=== PATIENT | male | born 1980 | race Two or more races ===

== ENCOUNTER 2018-08-05 12:38 | Emergency (ER) | payer OTHER ==
[2018-08-05 12:59] VITALS: TEMP 98.4; BMI 29.9
--- NOTE | 2018-08-05 12:59 | PDOC ---
History of Present Illness - General Chief Complaint: Cold Symptoms Stated Complaint: COUGH Time Seen by Provider: 08/05/18 12:47 - History of Present Illness Initial Comments: 08/05/18 13:30 Chief complaint: Cough History of present illness: Nonproductive cough for about 1 week. Also nasal congestion. Review of systems: No fever/chills, chest pain, shortness of breath, abdominal pain, nausea, vomiting, diarrhea, visual or focal neurologic symptoms, unsteadiness of gait. Past medical history: Hypertension, [id number] diabetes. Denies asthma or other lung disease. Social/family history reviewed and noncontributory Physical exam: Alert and oriented well-developed well-nourished no acute distress cheerful and cooperative Afebrile, vital signs normal except for mildly elevated blood pressure. Respiratory rate and oxygen saturation are normal HEENT: Mild nasal congestion, watery discharge Neck supple without bruit mass or nodes Chest clear to P&A but mildly decreased breath sounds throughout CV S1 and S2 normal without murmur rub or gallop pulses full and symmetric no JVD or edema no bruits 100 and regular Abdomen soft nontender without mass or organomegaly Extremities no CCE Skin clear, no rash, adequate turgor and wet mucous membranes Neurological intact Impression: Acute bronchitis, probably viral, possibly community-acquired pneumonia Plan: Antibiotics, antitussives, rest and close follow-up. Past History - Past Medical History Allergies/Adverse Reactions: Allergies Allergy/AdvReac Type Severity Reaction Status Date / Time No Known Allergies Allergy Verified 08/05/18 12:39 Home Medications: Ambulatory Orders Lisinopril [Zestril] 30 mg PO DAILY 01/06/16 Metformin HCl [Metformin HCl ER] 500 mg PO DAILY 01/06/16 Azithromycin [Zithromax 250mg Tablets -] 250 mg PO UTDICT #6 tab 08/05/18 Guaifenesin AC [Robitussin-AC] 1 - 2 tsp PO Q4HWA PRN #90 ml MDD 8 08/05/18 COPD: No Diabetes: Yes HTN: Yes - Immunization History Immunization Up to Date: Yes - Suicide/Smoking/Psychosocial Hx Smoking History: Never smoked Have you smoked in the past 12 months: No Information on smoking cessation initiated: No Hx Alcohol Use: No Drug/Substance Use Hx: No Substance Use Type: None *Physical Exam - Vital Signs Last Vital Signs Temp Pulse Resp BP Pulse Ox 98.4 F 106 H 20 148/101 H 99 08/05/18 12:38 08/05/18 12:38 08/05/18 12:38 08/05/18 12:38 08/05/18 12:38 Medical Decision Making - Medical Decision Making 08/05/18 14:12 Blood pressure and pulse normalized. Respiratory status is unchanged. No tachypnea, dyspnea, respiratory rate 12 and unlabored, and oxygen saturation 99% . Fully ambulatory and in no distress respiratory or otherwise at discharge to follow-up as directed. *DC/Admit/Observation/Transfer Diagnosis at time of Disposition: Acute bronchitis Qualifiers: Bronchitis organism: unspecified organism Qualified Code(s): J20.9 - Acute bronchitis, unspecified - Discharge Dispostion Disposition: HOME Condition at time of disposition: Stable Decision to Admit order: No - Prescriptions Prescriptions: Azithromycin [Zithromax 250mg Tablets -] 250 mg PO UTDICT #6 tab Guaifenesin AC [Robitussin-AC] 1 - 2 tsp PO Q4HWA PRN #90 ml MDD 8 PRN Reason: Cough - Referrals Referrals: Efra Serrano MD [Staff Physician] - 08/09/18 - Patient Instructions Printed Discharge Instructions: DI for Acute Bronchitis - Post Discharge Activity Forms/Work/School Notes: Back to Work
[2018-08-05 14:07] VITALS: BP 134/94; PULSE 81
== END 2018-08-05 14:29 | disposition home or self-care (01) ==
LOC: FER 12:38
DX: J20.9 Acute bronchitis, unspecified (principal); I10 Essential (primary) hypertension; E11.9 Type 2 diabetes mellitus without complications
CPT/HCPCS: 99282-25

== ENCOUNTER 2023-01-16 04:17 | Day surgery (SDC) | payer OTHER ==
[2023-01-15 13:02] VITALS: BMI 29.0
[2023-01-16 10:12] VITALS: TEMP 98
[2023-01-16 10:34] VITALS: PULSE 68
[2023-01-16 10:46] VITALS: BP 120/76; RESP 20
== END 2023-01-16 11:35 | disposition home or self-care (01) ==
LOC: JASU-ENDO 04:17
PROVIDERS: ATTEND Internal Medicine Gastroenterology
PROC: 0DJD8ZZ Inspection of Lower Intestinal Tract, Via Natural or Artificial Opening Endoscopic (ICD-10-PCS; principal; 2023-01-16 10:00)
DX: Z12.11 Encounter for screening for malignant neoplasm of colon (principal); K64.8 Other hemorrhoids

== ENCOUNTER 2023-10-26 19:34 | Emergency (ER) | payer OTHER ==
[2023-10-26 19:41] VITALS: RESP 18; BMI 29.2
[2023-10-26] MEDS ORDERED: ONDANSETRON 4 MG/2 ML VIAL ONE (21:24)
[2023-10-26] MEDS ORDERED: ACETAMINOPHEN INJECTION 100 ML IVPB ONE (21:24)
[2023-10-26] MEDS ORDERED: FAMOTIDINE 10 MG/ML VIAL IVPB ONE (21:25)
[2023-10-26] MEDS ORDERED: FAMOTIDINE 20 MG/50 ML IVPB 20 MG/50 ML MG IVPB ONE (21:26)
[2023-10-26 21:34] LABS: BASO % 0.6 % (0-2.0); EOS % 0.9 % (0-4.5); HEMATOCRIT 41.8 % (35.4-49); HEMOGLOBIN 14.3 GM/dL (11.7-16.9); LYMPH % 25.9 % (8-40); MCH 29.9 pg (25.7-33.7); MCHC 34.2 g/dl (32.0-35.9); MEAN CELL VOLUME 87.4 fl (80-96); MEAN PLT VOLUME 7.4 fl (7.5-11.1); MONO % 9.1 % (3.8-10.2); NEUT % 63.5 % (42.8-82.8); PLATELET COUNT 312 10^3/uL (134-434); RBC 4.78 M/mm3 (4.00-5.60); RDW 13.2 % (11.9-15.9); WHITE BLOOD COUNT 10.1 K/mm3 (4.0-10.0)
[2023-10-26] MEDS: SODIUM CHLORIDE 0.9% 500 ML INFUS.BAG IV ONE (21:44)
[2023-10-26] MEDS: ACETAMINOPHEN 1000 MG/100 ML BAG IVPB ONE (21:45)
[2023-10-26] MEDS: FAMOTIDINE 20 MG/50 ML IVPB 20 MG/50 ML MG IVPB ONE (21:45)
[2023-10-26] MEDS: ONDANSETRON 4 MG/2 ML VIAL IVPUSH ONE (21:46)
[2023-10-26 22:35] LABS: POTASSIUM 4.1 mmol/L (3.5-5.1)
[2023-10-26 22:37] LABS: CALCIUM 9.4 mg/dL (8.5-10.1)
[2023-10-26 22:38] LABS: ALBUMIN 4.7 g/dl (3.4-5.0); BLOOD UREA NITROGEN 7.8 mg/dL (7-18); MAGNESIUM 1.8 mg/dL (1.8-2.4)
[2023-10-26 22:41] LABS: CREATININE 0.9 mg/dL (0.55-1.3)
[2023-10-26 22:42] LABS: TOT PROT 8.3 g/dl (6.4-8.2)
[2023-10-26 22:43] LABS: BILIRUBIN,TOTAL 0.5 mg/dL (0.2-1)
[2023-10-27 01:45] VITALS: BP 124/87; PULSE 77; TEMP 97.7
== END 2023-10-27 01:47 | disposition home or self-care (01) ==
LOC: JER 19:34
PROC: 3E033GC Introduction of Other Therapeutic Substance into Peripheral Vein, Percutaneous Approach (ICD-10-PCS; principal; 2023-10-26)
PROC: 3E033GC Introduction of Other Therapeutic Substance into Peripheral Vein, Percutaneous Approach (ICD-10-PCS; 2023-10-26)
PROC: 3E033GC Introduction of Other Therapeutic Substance into Peripheral Vein, Percutaneous Approach (ICD-10-PCS; 2023-10-26)
DX: R10.13 Epigastric pain (principal); R11.2 Nausea with vomiting, unspecified; K80.20 Calculus of gallbladder without cholecystitis without obstruction
CPT/HCPCS: 36415; 76705-TC; 80053; 83690; 83735; 84484; 85025; 93005; 93010; 99285-25; J0131

== ENCOUNTER 2023-11-13 04:24 | Day surgery (SDC) | payer OTHER ==
[2023-11-06 17:32] VITALS: BMI 29.2
[2023-11-13] MEDS ORDERED: MIDAZOLAM HCL 2 MG/2 ML SINGLE DOSE VIAL ONE (11:53)
[2023-11-13] MEDS ORDERED: BUPIVACAINE HCL/PF 0.25% (2.5MG/ML) 10 ML VIAL ONE (11:55)
[2023-11-13] MEDS ORDERED: INDOCYANINE GREEN 25 MG/10 ML VIAL IVPUSH ONE (12:20)
[2023-11-13] MEDS ORDERED: LACTATED RINGERS SOLUTION 1,000 ML IV SCH ×2 (12:30→15:45)
[2023-11-13] MEDS ORDERED: cefOXitin SODIUM 2 GM VIAL (RESTRICTED TO ID) IVPB ONE (13:02)
[2023-11-13] MEDS: cefOXitin SODIUM 2 GM VIAL (RESTRICTED TO ID) IVPB ONE (13:06)
[2023-11-13] MEDS ORDERED: ROCURONIUM BROMIDE 50 MG/5 ML SYRINGE ONE (13:13)
[2023-11-13] MEDS: LIDOCAINE HCL 1%, 10 MG/ML (20ML VIAL) NR ONE (13:17)
[2023-11-13] MEDS: BUPIVACAINE HCL/PF 0.25% (2.5MG/ML) 10 ML VIAL IJ ONE ×2 (13:17)
[2023-11-13] MEDS ORDERED: NEOSTIGMINE METHYLSULFATE 0.5 MG/1 ML - 10 ML MDV ONE (14:56)
[2023-11-13] MEDS ORDERED: PROPOFOL 20 ML ONE (15:11)
[2023-11-13] MEDS: ACETAMINOPHEN 1000 MG/100 ML BAG IVPB ONE (15:30)
[2023-11-13] MEDS ORDERED: ACETAMINOPHEN INJECTION 100 ML IVPB ONE (15:34)
[2023-11-13] MEDS ORDERED: ONDANSETRON 4 MG/2 ML VIAL IVPUSH PRN (15:39)
[2023-11-13] MEDS ORDERED: ONDANSETRON 4 MG/2 ML VIAL ONE (17:33)
[2023-11-13] MEDS ORDERED: oxyCODONE HCL 10 MG SUSTAINED ACTING TABLET ONE (17:33)
[2023-11-13] MEDS: oxyCODONE HCL 5 MG TABLET PO PRN (17:35)
[2023-11-13] MEDS: ONDANSETRON 4 MG/2 ML VIAL IVPUSH PRN (17:35)
[2023-11-13] MEDS ORDERED: oxyCODONE HCL 5 MG TABLET PO PRN (17:36)
[2023-11-13 18:55] VITALS: BP 140/84; PULSE 80; RESP 20
[2023-11-13 18:58] VITALS: TEMP 97.2
== END 2023-11-13 19:00 | disposition home or self-care (01) ==
LOC: JASU-SURG 04:24
PROVIDERS: ATTEND Surgery
PROC: 0FT44ZZ Resection of Gallbladder, Percutaneous Endoscopic Approach (ICD-10-PCS; principal; 2023-11-13 10:30)
DX: K80.10 Calculus of gallbladder with chronic cholecystitis without obstruction (principal)
CPT/HCPCS: 47562; S2900; 82962; 86850; 86900; 86901; 88304-TC; 94760; J0131